=== PATIENT | female | born 1985 | race Hispanic/Latino ===

== ENCOUNTER 2018-05-10 17:01 | Emergency (ER) | payer BC, MEDICAID | END 2018-05-10 17:47 | disposition home or self-care (01) | LOC: EDH 17:01 | DX: K64.9 Unspecified hemorrhoids (principal); Z88.8 Allergy status to other drugs, medicaments and biological substances | CPT/HCPCS: 99281 ==

== ENCOUNTER 2018-12-11 16:33 | Emergency (ER) | payer BC, MEDICAID ==
[2018-12-11] MEDS ORDERED: IBUPROFEN 600 MG TABLET ONE (17:18)
== END 2018-12-11 20:08 | disposition home or self-care (01) ==
LOC: EDH 16:33
DX: M25.561 Pain in right knee (principal); Z88.8 Allergy status to other drugs, medicaments and biological substances; Z98.890 Other specified postprocedural states
CPT/HCPCS: 73562

== ENCOUNTER 2019-04-20 12:13 | Emergency (ER) | payer BC, OTHER ==
[2019-04-20] MEDS ORDERED: METOCLOPRAMIDE 10 MG TABLET ONE (13:39)
[2019-04-20 13:43] LABS: APPEARANCE,URINE Cloudy (CLEAR); BILIRUBIN,URINE Negative (NEGATIVE); COLOR,URINE Dark Yellow (YELLOW); GLUCOSE, URINE (UA) Negative (NEGATIVE); HCG,QUAL RESULT NEGATIVE (NEGATIVE); KETONES,URINE Negative (NEGATIVE); LEUKOCYTE ESTERASE ,URINE Small (NEGATIVE); NITRATE,URINE Negative (NEGATIVE); OCCULT BLOOD,URINE Negative (NEGATIVE); PH,URINE 5.5 (5.0-8.0); PROTEIN,URINE Negative (NEGATIVE)
[2019-04-20 13:48] LABS: BACTERIA,URINE Few /HPF (None Seen); RBC,URINE 0-1 /HPF (0-1); SQUAMOUS EPITHELIAL CELL,UR Few /HPF (0-2); WBC,URINE 0-1 /HPF (0-1)
[2019-04-20 13:51] LABS: AMPHET/METH SCREEN,URINE NEGATIVE (NEGATIVE); BARBITURATE SCREEN, URINE NEGATIVE (NEGATIVE); BENZODIAZEPINES SCREEN,URINE NEGATIVE (NEGATIVE); CANNABINOID SCREEN,URINE NEGATIVE (NEGATIVE); COCAINE SCREEN,URINE NEGATIVE (NEGATIVE); OPIATE SCREEN,URINE NEGATIVE (NEGATIVE); PHENCYCLIDINE SCREEN,URINE NEGATIVE (NEGATIVE)
[2019-04-20 14:02] LABS: BASOPHILS % (AUTO) 1.1 % (0.0-5.0); EOSINOPHILS % (AUTO) 0.9 % (0.0-8.0); LYMPHOCYTES % (AUTO) 16.8 % (21.0-51.0); MEAN CORPUSCULAR HEMOGLOBIN 26.5 pg (27.0-33.0); MEAN CORPUSCULAR HGB CONC 32.8 g/dL (32.0-36.0); MEAN CORPUSCULAR VOLUME 80.8 fL (79-99); MONOCYTES % (AUTO) 7.8 % (3.0-13.0); NEUTROPHILS % (AUTO) 73.4 % (40.0-77.0); PLATELET COUNT (AUTO) 397 K/uL (130-400); RED BLOOD CELL COUNT(AUTO) 4.59 MIL/uL (4.00-5.50); RED CELL DISTRIBUTION WIDTH 17.1 % (11.0-15.5); WHITE BLOOD COUNT (AUTO) 8.3 K/uL (4.8-10.8)
[2019-04-20 14:30] LABS: CREATININE 0.9 mg/dL (0.5-1.5); POTASSIUM 4.5 mmol/L (3.5-5.1)
[2019-04-20 14:33] LABS: ALBUMIN 3.9 g/dL (3.5-5.0)
[2019-04-20 15:46] LABS: BILIRUBIN,TOTAL 0.3 mg/dL (0.2-1.0); TOTAL PROTEIN, SERUM 8.3 g/dL (6.0-8.3)
== END 2019-04-20 14:51 | disposition home or self-care (01) ==
LOC: EDH 12:13
DX: G44.209 Tension-type headache, unspecified, not intractable (principal); R10.13 Epigastric pain; R11.2 Nausea with vomiting, unspecified; Z88.8 Allergy status to other drugs, medicaments and biological substances
CPT/HCPCS: 36415; 80053; 80305; 81001; 81025; 83690; 85025

== ENCOUNTER 2019-04-24 07:00 | Emergency (ER) | payer OTHER | END 2019-04-24 07:27 | disposition home or self-care (01) | LOC: EDH 07:00 | DX: B00.1 Herpesviral vesicular dermatitis (principal); Z98.890 Other specified postprocedural states; Z88.0 Allergy status to penicillin ==

== ENCOUNTER 2019-08-22 21:25 | Emergency (ER) | payer OTHER ==
[2019-08-22 21:51] LABS: APPEARANCE,URINE Clear (CLEAR); BILIRUBIN,URINE Negative (NEGATIVE); COLOR,URINE Yellow (YELLOW); GLUCOSE, URINE (UA) Negative (NEGATIVE); KETONES,URINE Negative (NEGATIVE); LEUKOCYTE ESTERASE ,URINE Trace (NEGATIVE); NITRATE,URINE Negative (NEGATIVE); OCCULT BLOOD,URINE Negative (NEGATIVE); PH,URINE 6.5 (5.0-8.0); PROTEIN,URINE Negative (NEGATIVE); UROBILINOGEN,URINE 0.2 mg/dL (0.2-1.0)
[2019-08-22 21:54] LABS: HCG,QUAL RESULT NEGATIVE (NEGATIVE)
[2019-08-22 22:16] LABS: BACTERIA,URINE None Seen /HPF (None Seen); MUCUS,URINE Rare LPF (None Seen); RBC,URINE 0-1 /HPF (0-1); SQUAMOUS EPITHELIAL CELL,UR Few /HPF (0-2); WBC,URINE 0-1 /HPF (0-1)
== END 2019-08-22 23:36 | disposition home or self-care (01) ==
LOC: EEVIPCON 21:25 → EDH 21:25
DX: R10.2 Pelvic and perineal pain (principal); R11.0 Nausea; Z88.8 Allergy status to other drugs, medicaments and biological substances; Z98.890 Other specified postprocedural states
CPT/HCPCS: 76856; 81001; 81025

== ENCOUNTER 2019-09-27 18:19 | Emergency (ER) | payer OTHER ==
[2019-09-27] MEDS ORDERED: ACETAMINOPHEN 325 MG TAB ONE (21:21)
== END 2019-09-27 19:10 | disposition home or self-care (01) ==
LOC: EDH 18:19
DX: J06.9 Acute upper respiratory infection, unspecified (principal); Z88.5 Allergy status to narcotic agent
CPT/HCPCS: 99281

== ENCOUNTER 2019-12-08 20:43 | Emergency (ER) | payer OTHER | END 2019-12-08 22:32 | disposition home or self-care (01) | LOC: EDH 20:43 | DX: B34.9 Viral infection, unspecified (principal); Z98.890 Other specified postprocedural states; Z88.8 Allergy status to other drugs, medicaments and biological substances | CPT/HCPCS: 71045; 87880 ==

== ENCOUNTER 2020-12-10 14:50 | Emergency (ER) | payer SELFPAY | END 2020-12-10 16:40 | disposition home or self-care (01) | LOC: EDH 14:50 | DX: J02.9 Acute pharyngitis, unspecified (principal); Z20.822 Contact with and (suspected) exposure to COVID-19 | CPT/HCPCS: 87426 ==

== ENCOUNTER 2021-02-08 21:53 | Emergency (ER) | payer OTHER, SELFPAY ==
[~2021-02-08] VITALS: Ht 160 cm; Wt 101.6 kg
[2021-02-08 22:33] VITALS: BP 107/58
[2021-02-08 22:44] LABS: BASOPHILS % (AUTO) 0.8 % (0.0-5.0); EOSINOPHILS % (AUTO) 4.2 % (0.0-8.0); HEMATOCRIT 34.4 % (36-48); LYMPHOCYTES % (AUTO) 21.2 % (21.0-51.0); MEAN CORPUSCULAR HEMOGLOBIN 24.5 pg (27.0-33.0); MEAN CORPUSCULAR HGB CONC 31.1 g/dL (32.0-36.0); MEAN CORPUSCULAR VOLUME 78.9 fL (79-99); MONOCYTES % (AUTO) 8.6 % (3.0-13.0); NEUTROPHILS % (AUTO) 64.9 % (40.0-77.0); PLATELET COUNT (AUTO) 373 K/uL (130-400); RED BLOOD CELL COUNT(AUTO) 4.36 MIL/uL (4.00-5.50); RED CELL DISTRIBUTION WIDTH 15.9 % (11.0-15.5); WHITE BLOOD COUNT (AUTO) 6.4 K/uL (4.8-10.8)
[2021-02-08 22:57] LABS: APPEARANCE,URINE Clear (CLEAR); BILIRUBIN,URINE Negative (NEGATIVE); COLOR,URINE Yellow (YELLOW); GLUCOSE, URINE (UA) Negative (NEGATIVE); KETONES,URINE Negative (NEGATIVE); LEUKOCYTE ESTERASE ,URINE Negative (NEGATIVE); NITRATE,URINE Negative (NEGATIVE); OCCULT BLOOD,URINE Negative (NEGATIVE); PROTEIN,URINE Negative (NEGATIVE); UROBILINOGEN,URINE 0.2 mg/dL (0.2-1.0)
[2021-02-08 23:03] LABS: HCG,QUAL RESULT NEGATIVE (NEGATIVE)
[2021-02-08 23:20] LABS: CREATININE 0.9 mg/dL (0.5-1.5); POTASSIUM 3.3 mmol/L (3.5-5.1)
[2021-02-08 23:25] LABS: ALBUMIN 3.6 g/dL (3.5-5.0); BILIRUBIN,TOTAL 0.3 mg/dL (0.2-1.0)
[2021-02-08] MEDS ORDERED: ONDA4TAB10 PO (23:47)
[2021-02-08 23:55] VITALS: BP 112/60
[2021-02-10 17:10] LABS: CHLAMYDIA DNA N.A.AMPLIFY Negative (Negative)
== END 2021-02-09 00:03 | disposition home or self-care (01) ==
LOC: EDH 21:53
DX: A08.4 Viral intestinal infection, unspecified (principal); Z88.5 Allergy status to narcotic agent; Z98.890 Other specified postprocedural states
CPT/HCPCS: 36415; 80053; 81003; 81025; 85025; 87486; 87797

== ENCOUNTER 2021-07-04 20:34 | Emergency (ER) | payer BC, OTHER ==
[~2021-07-04] VITALS: Ht 160 cm; Wt 95.3 kg
[~2021-07-04 20:34] MED LIST: ONDA4TAB10 PO
[2021-07-04 20:37] VITALS: BP 136/69
[2021-07-04] MEDS ORDERED: KETOROLAC 30MG VIAL (30MG/ML) IM STA (21:15)
[2021-07-04] MEDS ORDERED: NAPR500T6 PO (21:49)
== END 2021-07-04 22:04 | disposition home or self-care (01) ==
LOC: EDH 20:34
DX: S63.501A Unspecified sprain of right wrist, initial encounter (principal); S60.221A Contusion of right hand, initial encounter; Z79.899 Other long term (current) drug therapy; W18.39XA Other fall on same level, initial encounter; Y93.89 Activity, other specified; Y92.89 Other specified places as the place of occurrence of the external cause; Y99.8 Other external cause status
CPT/HCPCS: 29125; 73110; 73130; 96372; 99284; J1885

== ENCOUNTER 2022-06-17 13:54 | Emergency (ER) | payer BC, OTHER ==
[~2022-06-17] VITALS: Ht 160 cm; Wt 59.0 kg
[~2022-06-17 13:54] MED LIST changes: +NAPR500T6 PO
[2022-06-17 13:59] VITALS: BP 137/85
[2022-06-17] MEDS ORDERED: FLUT15.845 NS (18:32)
[2022-06-17] MEDS ORDERED: FEXO180T94 PO (18:32)
== END 2022-06-17 19:20 | disposition home or self-care (01) ==
LOC: EDH 13:54
DX: J30.9 Allergic rhinitis, unspecified (principal); Z20.822 Contact with and (suspected) exposure to COVID-19; Z88.6 Allergy status to analgesic agent; Z79.899 Other long term (current) drug therapy; Z98.890 Other specified postprocedural states
CPT/HCPCS: 99283; 87635; 87880; 87804 ×2; C9803

== ENCOUNTER 2023-04-23 21:32 | Emergency (ER) | payer BC, OTHER ==
[~2023-04-23] VITALS: Ht 160 cm; Wt 99.3 kg
[~2023-04-23 21:32] MED LIST changes: +FEXO180T94 PO; +FLUT15.845 NS
[2023-04-23 22:02] VITALS: BP 144/81; PULSE 77; RESP 18
[2023-04-23 23:13] LABS: APPEARANCE,URINE CLEAR (CLEAR); BILIRUBIN,URINE NEGATIVE (NEGATIVE); GLUCOSE, URINE (UA) NEGATIVE (NEGATIVE); KETONES,URINE NEGATIVE (NEGATIVE); LEUKOCYTE ESTERASE ,URINE NEGATIVE Leu/uL (NEGATIVE); NITRATE,URINE NEGATIVE (NEGATIVE); OCCULT BLOOD,URINE NEGATIVE (NEGATIVE); PROTEIN,URINE NEGATIVE (NEGATIVE); UROBILINOGEN,URINE 0.2 mg/dL (0.2-1.0)
[2023-04-23 23:16] LABS: ADD UA MICROSCOPIC YES; COLOR,URINE YELLOW (YELLOW)
[2023-04-23 23:17] LABS: HCG,QUALITATIVE URINE NEGATIVE (NEGATIVE)
[2023-04-23 23:18] LABS: RBC,URINE 0-1 /HPF (0-1); SQUAMOUS EPITHELIAL CELL,UR FEW /HPF (0-2)
[2023-04-24] MEDS ORDERED: CEFTRIAXONE 1G VIAL IM ONE
[2023-04-24] MEDS ORDERED: AZITHROMYCIN 250 MG TABLET PO ONE
== END 2023-04-23 23:51 | disposition home or self-care (01) ==
LOC: EDH 21:32
DX: A64 Unspecified sexually transmitted disease (principal); Z79.899 Other long term (current) drug therapy; Z98.890 Other specified postprocedural states; Z88.8 Allergy status to other drugs, medicaments and biological substances
CPT/HCPCS: 99283; 87797; 87486; 81001; 81025; 96372; J0696